=== PATIENT | female | born 2000 | race Two or more races ===

== ENCOUNTER 2024-05-25 23:23 | Emergency (ER) | payer MEDICAID, OTHER ==
[~2024-05-25] VITALS: Ht 170.2 cm; Wt 100.0 kg
[2024-05-26 01:19] VITALS: BP 110/68; TEMP 97
[2024-05-26 01:29] VITALS: PULSE 78; RESP 16; O2SAT 100
[2024-05-26] MEDS ORDERED: IBUP-1454 PO (03:10)
== END 2024-05-26 03:17 | disposition home or self-care (01) ==
LOC: ER 23:23
DX: S93.401A Sprain of unspecified ligament of right ankle, initial encounter (principal); Z32.02 Encounter for pregnancy test, result negative; X58.XXXA Exposure to other specified factors, initial encounter; Y93.89 Activity, other specified; Y92.89 Other specified places as the place of occurrence of the external cause; Y99.8 Other external cause status
CPT/HCPCS: 73610; 81025

== ENCOUNTER → 2025-02-14 | Outpatient (CLI) | payer MEDICAID ==
[~2025-02-14] MED LIST: IBUP-1454 PO
[2025-02-14 15:07] LABS: Hepatitis B Surface Antibody Negative (Negative)
[2025-02-14 15:27] LABS: Hepatitis A Ab IgM Negative
[2025-02-16 06:07] LABS: Chlamydia Trachomatis, NAA Negative (Negative); Neisseria gonorrhoeae, NAA Negative (Negative)
== END | disposition home or self-care (01) ==
LOC: LAB 14:02
DX: Z11.3 Encounter for screening for infections with a predominantly sexual mode of transmission (principal); Z11.2 Encounter for screening for other bacterial diseases
CPT/HCPCS: 36415; 84702; 86703; 86706; 86709; 86780